=== PATIENT | male | born 1965 ===

== ENCOUNTER 2018-07-09 10:24 | Day surgery (SDC) | payer BC ==
[~2018-07-09] VITALS: Ht 175.3 cm; Wt 78.0 kg
[2018-07-09] VITALS (7 sets, daily range): BP systolic 112–122; BP diastolic 64–74
[2018-07-09] MEDS ORDERED: SYNTHROID125 MCG ORAL (10:50)
--- NOTE | 2018-07-09 11:20 | Anethesia Preoperative Eval ---
Anesthesia Pre-op PMH/ROS General Date of Evaluation: Jul 09, 2018 Time of Evaluation: 11:17 Anesthesiologist: fan ASA Score: ASA 3 Mallampati Score Class I : Soft palate, uvula, fauces, pillars visible Class II: Soft palate, uvula, fauces visible Class III: Soft palate, base of uvula visible Class IV: Only hard plate visible Mallampati Classification: Class II Surgeon: pa Diagnosis: abdominal pain, weight loss Surgical Procedure: egd/colonoscopy Anesthesia History: none Social History: current smoker Family History: no anesthesia problems Allergies: Coded Allergies: No Known Allergies (Unverified , 07/09/18) Medications: see eMAR Patient NPO?: Yes Past Medical History Endocrine: Reports: hypothyroidism PSxH Narrative: thyroidectomy Anesthesia Pre-op Phys. Exam Physician Exam Last Vital Signs Date Time Temp Pulse Resp B/P (MAP) Pulse Ox O2 Delivery O2 Flow Rate FiO2 07/09/18 11:05 97.3 50 14 121/72 99 Room Air Constitutional: NAD Neurologic: CN 2-12 intact Cardiovascular: RRR Respiratory: CTA Gastrointestinal: S/NT/ND Airway Exam Mallampati Score: Class II MO: limited Neck: flexible TMD: 2fb ROM: limited Anesthesia Pre-op A/P Risk Assessment & Plan Assessment: asa3 Plan: mac Status Change Before Surgery: No Pre-Antibiotics Drug: Ora Salinas MD Jul 09, 2018 11:20
[2018-07-09] MEDS ORDERED: fentaNYL 100 mcg/2 mL IV PRN (11:30)
[2018-07-09] MEDS ORDERED: Midazolam 2mg/2ml Inj IVP PRN (11:30)
[2018-07-09] MEDS ORDERED: DiphenhydrAMINE 50mg/ml Inj IVP PRN (11:30)
[2018-07-09] MEDS ORDERED: Atropine Inj 1mg/10ml Syr IV PRN (11:30)
--- NOTE | 2018-07-09 11:46 | Pre-Procedure Note/Attestation ---
Pre-Procedure Note/Attestation Complete Prior to Procedure Planned Procedure: not applicable Procedure Narrative: esophagogastroduodenoscopy and colonoscopy Indications for Procedure Pre-Operative Diagnosis: screening colon, GERD Attestation I attest that I discussed the nature of the procedure; its benefits; risks and complications; and alternatives (and the risks and benefits of such alternatives ), prior to the procedure, with the patient (or the patient's legal manufacturing sales representative). I attest that, if there was a reasonable possibility of needing a blood transfusion, the patient (or the patient's legal manufacturing sales representative) was given the [facility] standardized written summary, pursuant to the [place] Blood Safety Act ([place] Health and Safety Code # 1645, as amended). I attest that I re-evaluated the patient just prior to the surgery and that there has been no change in the patient's H&P, except as documented below: Ari Yepez MD Jul 09, 2018 11:46
--- NOTE | 2018-07-09 11:50 | Short Stay Surgery H&P ---
History of Present Illness History of Present Illness Chief Complaint screening colon, GERD HPI Dl Rosario is a 52 year old male who was admitted on for Abdominal Pain, Weight Loss Patient History Allergies: Coded Allergies: No Known Allergies (Unverified , 07/09/18) PAST MEDICAL HISTORY: (1) Thyroid cancer Medication History Scheduled Levothyroxine Sodium* (Synthroid*), 137 MCG ORAL DAILY, (Reported) Review of Systems Cardiovascular: Reports: no symptoms Respiratory: Reports: no symptoms Skeletal: Reports: no symptoms Gastrointestinal: Reports: no symptoms Genitourinary: Reports: no symptoms Neurologic: Reports: no symptoms Endocrine: Reports: no symptoms Physical Exam Vital Signs Last Vital Signs Date Time Temp Pulse Resp B/P (MAP) Pulse Ox O2 Delivery O2 Flow Rate FiO2 07/09/18 11:05 97.3 50 14 121/72 99 Room Air Skin: normal HENT: normal Heart: normal Lungs: normal Abdomen: normal Extremities: normal Plan Plan of Care esophagogastroduodenoscopy and colonoscopy Attestation Are the patient's medical conditions optimized for surgery? Attestation Response: yes Ari Yepez MD Jul 09, 2018 11:50
--- NOTE | 2018-07-09 12:17 | Endoscopy Procedure Note ---
Endoscopy Procedure Note General Indication for Procedure: screening colon, GERD Procedures Performed: EGD, colonoscopy Operative Findings/Diagnosis: one colon polyp, gastritis Specimen: yes Pt Tolerated Procedure Well: Yes Estimated Blood Loss: none Anesthesia Anesthesiologist: fan Anesthesia: MAC Inserted Devices Implant(s) used?: No Quality Quality of Bowel Preparation: Good Did scope reach the cecum?: Yes Was there any complications?: No GI Core Measures 50 yrs or older w/o bx or poly: No 10yrs. F/U not recommended: Yes If not recommended, why?: Above average risk 10 yrs. F/U needed: Yes 18 years or older w/prev. colo: No Ari Yepez MD Jul 09, 2018 12:17
--- NOTE | 2018-07-09 14:10 | Immediate Post-Op Evaluation ---
Immediate Post-Op Evalulation Immediate Post-Op Evalulation Procedure: egd/colonoscopy/bx Date of Evaluation: Jul 09, 2018 Time of Evaluation: 12:39 IV Fluids: 500ml 0.9ns Blood Products: none Estimated Blood Loss: negligible Blood Pressure Systolic: 112 Blood Pressure Diastolic: 68 Pulse Rate: 52 Respiratory Rate: 18 O2 Sat by Pulse Oximetry: 100 Temperature (Fahrenheit): 97.2 Pain Score (1-10): 0 Nausea: No Vomiting: No Complications none Patient Status: awake, reacts, patent Hydration Status: adequate Drug: Ora Salinas MD Jul 09, 2018 14:10
--- NOTE | 2018-07-09 14:13 | 48 Hour Post Anesthesia Eval ---
Post Anesthesia Evaluation Procedure: egd/colonoscopy/bx Date of Evaluation: Jul 09, 2018 Time of Evaluation: 12:41 Blood Pressure Systolic: 117 0: 74 Pulse Rate: 58 Respiratory Rate: 18 Temperature (Fahrenheit): 97.2 O2 Sat by Pulse Oximetry: 100 Airway: patent Nausea: No Vomiting: No Pain Intensity: 0 Hydration Status: adequate Cardiopulmonary Status: stable Mental Status/LOC: patient returned to baseline Post-Anesthesia Complications: none Follow-up care needed: N/A Ora Sanchez MD Jul 09, 2018 14:13
--- NOTE | 2018-07-09 18:15 | Procedure Note ---
DATE OF PROCEDURE: 07/09/2018 SURGEON: Ari Yepez M.D. REFERRING PHYSICIAN: Jimbo Machuca M.D. PROCEDURE: Upper endoscopy with biopsy and colonoscopy with biopsy. ANESTHESIA: Per Dr. Brice. INSTRUMENT: Olympus adult flexible upper endoscope and colonoscope. INDICATION: Screening colonoscopy evaluation and chronic GERD. REASON FOR PROCEDURE: The procedure, risks, benefits, and possible consequences, including hemorrhage, aspiration, perforation and infection, and alternative treatments, were explained to the patient/legal guardian by Dr. Ari Yepez and the patient/legal guardian understood and accepted these risks. PROCEDURE IN DETAIL: After informed consent was obtained and the patient was adequately sedated, Olympus upper endoscope was advanced from the mouth into the second portion of duodenum and retroflexion was performed in the stomach. GE junction was found to be about 40 cm from the incisors. There was no evidence of any gastric ulceration. No esophagitis. Minimum diffuse gastritis. Random biopsy from antrum and body was obtained to rule out H. pylori infection. At this time, the upper endoscope was retrieved and the patient was turned over for colonoscopy. First rectal exam was performed which was normal. Then, the scope was advanced from the rectum into the cecum and then subsequently in the terminal ileum. Quality of prep overall was good except for an area in the cecum, which was covered with solid stool, which was washed and cleaned as best as we could. Terminal ileum looked normal. There was one diminutive polyp in the transverse colon, removed with the cold biopsy forceps technique. The rest of the examination was grossly within normal limit. Retroflexion of the rectum showed evidence of internal hemorrhoids. SUMMARY OF FINDINGS: 1. Gastritis, status post biopsy. 2. One colonic polyp removed, see above for details. 3. Internal hemorrhoids. RECOMMENDATIONS: 1. Follow up biopsy results and treat accordingly. 2. We recommend repeat colonoscopy in five years. I want to thank Dr. Jimbo Machuca for this kind referral. Ari Yepez M.D. DR: ANGY JOB#: [id number] CC: Jimbo Machuca M.D.; Fax#: [phone]
== END 2018-07-09 13:35 | disposition home or self-care (01) ==
LOC: GAS 10:24
DX: Z12.11 Encounter for screening for malignant neoplasm of colon (principal); K21.9 Gastro-esophageal reflux disease without esophagitis; K29.50 Unspecified chronic gastritis without bleeding; K63.5 Polyp of colon; K64.8 Other hemorrhoids; Z85.850 Personal history of malignant neoplasm of thyroid; E89.0 Postprocedural hypothyroidism; F17.210 Nicotine dependence, cigarettes, uncomplicated
CPT/HCPCS: 93005; 94003; 94150